=== PATIENT | female | born 1975 | race Caucasian/White ===

== ENCOUNTER 2021-02-13 21:30 | Emergency (ER) | payer OTHER ==
[2021-02-13 23:58] VITALS: BP 117/68
--- NOTE | 2021-02-14 00:38 | ED Physician Documentation ---
PD HPI SKIN - Stated complaint Stated Complaint: ALLERGIC REACTION - Chief complaint Chief Complaint: Wound - History obtained from History obtained from: Patient - History of Present Illness Timing - onset: How many days ago (3) Timing - duration: Days (3) Timing - details: Abrupt onset (got bug bites 3 days ago, and has had progressive swelling of all the bites, with itching.) Location: Other (around ankles and lower legs, which were exposed when by campfire. No core truncal bites/lesions.) Quality / character: Itchy, Swelling. No: Vesicular, Draining Associated symptoms: No: Facial swelling, Dyspnea, N/V/D Contributing factors: Insect bite /sting Similar symptoms before: Has not had sx before Review of Systems Constitutional: denies: Fever, Chills Nose: denies: Rhinorrhea / runny nose, Congestion Throat: denies: Sore throat Respiratory: denies: Dyspnea, Cough, Wheezing GI: denies: Nausea, Vomiting, Diarrhea PD PAST MEDICAL HISTORY - Past Medical History Cardiovascular: None Respiratory: Asthma Neuro: None Endocrine/Autoimmune: None GI: None SMOKE AND FLAME SPECIALIST: None : None HEENT: None Psych: Depression Musculoskeletal: None Derm: Other Other Past Medical History: acne, exercise induced asthma - Past Surgical History Past Surgical History: Yes /SMOKE AND FLAME SPECIALIST: section - Present Medications Home Medications: Ambulatory Orders Medication Instructions Recorded Confirmed Cetirizine [ZyrTEC] 10 mg PO BID #15 tablet 02/14/21 Lidocaine Jelly 2% [Xylocaine 1 applic TOP BID PRN #30 ml 02/14/21 Jelly 2%] Multivitamin 1 PO DAILY 02/14/21 dexAMETHasone [Decadron] 4 mg PO DAILY #5 tablet 02/14/21 - Allergies Allergies/Adverse Reactions: Allergies Allergy/AdvReac Type Severity Reaction Status Date / Time ibuprofen Allergy Anaphylaxis Verified 02/13/21 21:42 lactase [From Dairy Aid] AdvReac Cramps Verified 02/14/21 00:10 - Social History Does the pt smoke?: No Smoking Status: Never smoker Does the pt drink ETOH?: No Does the pt have substance abuse?: No - Immunizations Immunizations are current?: Yes PD ED PE NORMAL - Vitals Vital signs reviewed: Yes - General General: Alert and oriented X 3, No acute distress (seems uncomfortable with the itching.), Well developed/nourished - HEENT HEENT: Pharynx benign (no oral swelling.) - Respiratory Respiratory: Clear bilaterally - Derm Derm: Normal color, Warm and dry - Extremities Extremities: Other (some on hands, mostly ankles and lower legs with discrete raised rounded areas without confluent redness c/w local bites with reaction. ) - Neuro Neuro: No motor deficit, No sensory deficit Results - Vitals Vitals: Oxygen O2 Source Room air PD MEDICAL DECISION MAKING - ED course Complexity details: considered differential (has notable swelling at all the bugbite areas, so seems hypersensitive and not appearing infectious. ), d/w patient Departure - Departure Disposition: Home, Self Care Clinical Impression: Bug bites, Dermal hypersensitivity reaction Condition: Stable Record reviewed to determine appropriate education?: Yes Prescriptions: dexAMETHasone [Decadron] 4 mg PO DAILY #5 tablet Lidocaine Jelly 2% [Xylocaine Jelly 2%] 1 applic TOP BID PRN #30 ml PRN Reason: Itching Cetirizine [ZyrTEC] 10 mg PO BID #15 tablet Comments: Cool towels can sometimes help with the itching. Lidocaine topical jelly can help with the itching 2. Cetirizine antihistamine twice daily for the next week. Decadron steroid daily for the next 3 to 5 days. I would anticipate these improving over the next day or 2. Add some Benadryl every 6 hours if needed for itching as well. Discharge Date/Time: 02/14/21 01:36
[2021-02-14] MEDS ORDERED: LIDOCAINE JELLY 2% 6 ML JEL.PF.APP TOP STA (00:59)
[2021-02-14] MEDS ORDERED: diphenhydrAMINE 25 MG CAPSULE PO STA (00:59)
[2021-02-14] MEDS ORDERED: CETIRIZINE 10 MG TABLET PO STA (00:59)
[2021-02-14] MEDS ORDERED: DEXAMETHASONE 10 MG/ML VIAL PO STA (00:59)
[2021-02-14] MEDS ORDERED: CHERRY SYRUP 10 ML UDC PO ONE (00:59)
== END 2021-02-14 01:36 | disposition home or self-care (01) ==
LOC: ED 21:30
DX: S90.562A Insect bite (nonvenomous), left ankle, initial encounter (principal); S90.561A Insect bite (nonvenomous), right ankle, initial encounter; S80.862A Insect bite (nonvenomous), left lower leg, initial encounter; S80.861A Insect bite (nonvenomous), right lower leg, initial encounter; T78.49XA Other allergy, initial encounter; W57.XXXA Bitten or stung by nonvenomous insect and other nonvenomous arthropods, initial encounter
CPT/HCPCS: 99283; 99284; A9270

== ENCOUNTER 2021-07-07 19:57 | Emergency (ER) | payer OTHER ==
--- NOTE | 2021-07-07 20:23 | ED Physician Documentation ---
History of Present Illness - Stated complaint Stated Complaint: LT CHEST SORE - Chief complaint Chief Complaint: General - History obtained from History obtained from: Patient (46-year-old woman with several day history of abscess under the left breast. No systemic symptoms. No history of MRSA.) Review of Systems Constitutional: denies: Fever, Chills Nose: reports: Reviewed and negative Cardiac: reports: Reviewed and negative Respiratory: reports: Reviewed and negative PD PAST MEDICAL HISTORY - Past Medical History Past Medical History: Yes Cardiovascular: None Respiratory: Asthma Neuro: None Endocrine/Autoimmune: None GI: None MAILROOM ASSISTANT: None : None HEENT: None Psych: Depression Musculoskeletal: None Derm: Other - Past Surgical History Past Surgical History: Yes /MAILROOM ASSISTANT: section - Present Medications Home Medications: Ambulatory Orders Medication Instructions Recorded Confirmed Cetirizine [ZyrTEC] 10 mg PO BID #15 tablet 02/14/21 07/07/21 Sulfamethox/Trimeth 800/160 1 each PO BID #14 tablet 07/07/21 [Bactrim Ds 800/160] - Allergies Allergies/Adverse Reactions: Allergies Allergy/AdvReac Type Severity Reaction Status Date / Time ibuprofen Allergy Anaphylaxis Verified 07/07/21 20:16 lactase [From Dairy Aid] AdvReac Cramps Verified 07/07/21 20:16 - Social History Does the pt smoke?: No Smoking Status: Never smoker Does the pt drink ETOH?: No Does the pt have substance abuse?: No - Immunizations Immunizations are current?: Yes - POLST Patient has POLST: No PD ED PE NORMAL - Vitals Vital signs reviewed: Yes - General General: Alert and oriented X 3, No acute distress - Derm Derm: Other (Large pointed abscess with overlying cellulitis in the left anterior lower chest wall well below the breast. Exam and all procedures done with Lenka chandler at bedside.) - Neuro Neuro: Alert and oriented X 3, Normal speech Results - Vitals Vitals: Vital Signs - 24 hr 07/07/21 20:14 Temperature 36.4 C L Heart Rate 93 Respiratory 17 Rate Blood Pressure 145/76 H O2 Saturation 100 Oxygen O2 Source Room air Procedures - Abscess I&D (location) L chest wall Preparation: Alcohol, Lidocaine 1% Incision: Incised with scalpel, Purulent drainage, Loculations broken, Packed, Culture obtained Other: Pt tolerated well, Dressing applied, Antibiotic prescribed Departure - Departure Disposition: Home, Self Care Clinical Impression: Chest wall abscess Condition: Good Record reviewed to determine appropriate education?: Yes Instructions: ED Abscess IandD Prescriptions: Sulfamethox/Trimeth 800/160 [Bactrim Ds 800/160] 1 each PO BID #14 tablet Comments: Packing removal in 2 days, you can do it at home or return here for same. We are performing a wound culture, the results should be done in 48-72 hours. If antibiotic change is necessary we will call you. Return if worse in the meantime, especially if you develop increased pain, fevers, cannot keep down the medication. Otherwise follow-up with your physician in approximately 2-3 days.
[2021-07-07] MEDS: BUFFERED LIDOCAINE 10 ML SYRINGE SUBQ STA (20:29)
[2021-07-07] MEDS: SULFAMETH/TRIMETH DS 800/160 MG TABLET PO STA (20:44)
[2021-07-07 20:47] VITALS: BP 132/74
== END 2021-07-07 20:46 | disposition home or self-care (01) ==
LOC: ED 19:57
DX: L02.213 Cutaneous abscess of chest wall (principal); L03.313 Cellulitis of chest wall
CPT/HCPCS: 10060; 87070; 87205; 99283; A9270